=== PATIENT | female | born 1975 | race Caucasian/White ===

== ENCOUNTER 2022-06-06 05:25 | Emergency (ER) | payer SELFPAY ==
[2022-06-06 06:41] LABS: #Lymphocytes 1.2 thou/uL (1.20-3.40); #Monocytes 0.6 thou/uL (0.11-0.59); #Neutrophils 5.6 thou/uL (1.40-6.50); %Basophils 0.6 % (0.0-1.0); %Eosinophils 0.7 % (0.0-10.0); %Lymphocytes 15.9 % (21.0-51.0); %Neutrophils 74.8 % (42.0-75.0); Hemoglobin 15.4 g/dL (12.0-16.0); Mean Corpuscular HGB CONC 33.3 g/dL (32.0-36.0); Mean Corpuscular Hemoglobin 29.7 pg (27.0-31.0); Mean Corpuscular Volume 89.4 fL (78.0-98.0); Mean Platelet Volume 11.2 fL (7.4-10.4); Platelet Count 163 thou/uL (130-400); RBC Distribution Width 11.4 % (11.5-14.5); Red Blood Cell (RBC) Count 5.17 mill/uL (4.20-5.40); White Blood Cell (WBC) Count 7.5 thou/uL (4.8-10.8)
[2022-06-06] MEDS ORDERED: Sodium Chloride 0.9% 1,000 ML ONE (06:53)
[2022-06-06 07:01] LABS: ALT (SGPT) 17 U/L (8-55); AST (SGOT) 23 U/L (5-34); Albumin 4.9 g/dL (3.5-5.0); Alkaline Phosphatase 97 U/L (40-110); Anion Gap 17 mmol/L (10-20); BUN (Urea Nitrogen) 8 mg/dL (7.0-18.7); Bilirubin, Total 0.5 mg/dL (0.2-1.2); CK (CPK) 134 U/L (29-168); CRP (Inflammatory) Less than 0.50 mg/dL (= or < 0.5); Calc. Creatinine Clearance 0 mL/min (70-130); Calcium 9.5 mg/dL (7.8-10.44); Carbon Dioxide 25 mmol/L (22-29); Chloride 105 mmol/L (98-107); Estimated GFR 82; Globulin 3.6 g/dL (2.4-3.5); Glucose 100 mg/dL (70-105); Protein, Total 8.5 g/dL (6.0-8.3); Sodium 143 mmol/L (136-145)
== END 2022-06-06 09:14 | disposition home or self-care (01) ==
LOC: MADERS 05:25
DX: R51.9 Headache, unspecified (principal); E86.0 Dehydration; H53.149 Visual discomfort, unspecified; Z87.891 Personal history of nicotine dependence
CPT/HCPCS: 70450; 80053; 82550; 85025; 86140; 96360; J7050

== ENCOUNTER 2022-10-24 08:15 | Emergency (ER) | payer SELFPAY ==
[2022-10-24 08:44] LABS: Bilirubin Moderate (Negative); Blood, Urine Negative (Negative); Glucose, Urine (Dipstick) 100 mg/dL (Negative); Ketone, Urine Trace mg/dL (Negative); Leukocyte Trace (Negative); Nitrite Positive (Negative); Protein, Urine (Dipstick) 30 mg/dL (Neg-Trace)
[2022-10-24 08:48] LABS: Clarity Hazy (Clear); Specific Gravity, Urine 1.026 (1.002-1.036)
[2022-10-24 08:52] LABS: Bacteria/HPF Rare-Few HPF (None Seen); Mucous/LPF 2+ LPF (<2+); RBC/HPF 0-3 HPF (0-3)
[2022-10-24] MEDS ORDERED: predniSONE 20 MG TAB ONE (09:07)
== END 2022-10-24 09:14 | disposition home or self-care (01) ==
LOC: MADERS 08:15
DX: L50.0 Allergic urticaria (principal); F17.210 Nicotine dependence, cigarettes, uncomplicated
CPT/HCPCS: 81003; 81015; 87086; 99283; J7512

== ENCOUNTER 2023-03-16 07:57 | Outpatient (CLI) | payer OTHER, SELFPAY | END 2023-03-16 07:58 | disposition home or self-care (01) | LOC: MADULT 07:57 | PROVIDERS: ATTEND Nurse Practitioner Family | DX: R10.31 Right lower quadrant pain (principal) | CPT/HCPCS: 76856 ==

== ENCOUNTER 2024-10-03 14:58 | Emergency (ER) | payer SELFPAY | END 2024-10-03 16:28 | disposition home or self-care (01) | LOC: MADERS 14:58 | DX: L30.9 Dermatitis, unspecified (principal) | CPT/HCPCS: 99282 ==

== ENCOUNTER 2025-07-13 20:18 | Emergency (ER) | payer SELFPAY ==
[2025-07-13 20:37] LABS: #Basophils 0.1 thou/uL (0.0-0.2); #Eosinophils 0.1 thou/uL (0.0-0.7); #Lymphocytes 1.9 thou/uL (1.20-3.40); #Monocytes 0.5 thou/uL (0.11-0.59); #Neutrophils 5.5 thou/uL (1.40-6.50); %Basophils 0.9 % (0.0-1.0); %Eosinophils 1.7 % (0.0-10.0); %Lymphocytes 23.0 % (21.0-51.0); %Monocytes 6.1 % (0.0-10.0); %Neutrophils 68.3 % (42.0-75.0); Hematocrit 42.2 % (36.0-47.0); Hemoglobin 13.9 g/dL (12.0-16.0); Mean Corpuscular Hemoglobin 29.8 pg (27.0-31.0); Mean Corpuscular Volume 90.3 fl (78.0-98.0); Platelet Count 215 10x3/uL (130-400); Red Blood Cell (RBC) Count 4.67 mill/uL (4.20-5.40); White Blood Cell (WBC) Count 8.1 10x3/uL (4.8-10.8)
[2025-07-13 20:56] LABS: ALT (SGPT) 16 U/L (Less than 34); AST (SGOT) 27 U/L (11-34); Albumin 4.5 g/dL (3.1-4.5); Alkaline Phosphatase 114 U/L (40-110); Anion Gap 16 mmol/L (10-20); BUN (Urea Nitrogen) 12 mg/dL (9.8-20.1); Bilirubin, Total 0.2 mg/dL (0.3-1.2); Calc. Creatinine Clearance 0 mL/min (70-130); Calcium 9.5 mg/dL (7.8-10.44); Carbon Dioxide 22 mmol/L (22-29); Chloride 108 mmol/L (98-107); Globulin 3.4 g/dL (2.4-3.5); Glucose 128 mg/dL (70-105); Potassium 3.8 mmol/L (3.5-5.1); Sodium 142 mmol/L (136-145); Troponin I Less than 0.010 ng/mL (< 0.028)
== END 2025-07-13 21:36 | disposition home or self-care (01) ==
LOC: MADERS 20:18
DX: R07.9 Chest pain, unspecified (principal); Z87.891 Personal history of nicotine dependence
CPT/HCPCS: 71045; 80053; 84484; 85025; 85379; 93005